=== PATIENT | male | born 1945 | race Caucasian/White ===

== ENCOUNTER 2016-12-29 12:22 | Inpatient (IN) | payer BC ==
--- NOTE | ~2016-12-29 | OP ---
Record Of Operation [facility] [address] [place]. [address] NAME: CAR PEÑALOZA : 45 STATUS : ADM Ziggy PAT#: [id number] AGE: 71 ADM/REG DATE : 12/29/16 MR#: [id number] REPORT SERV DATE: 12/30/16 DICTATED BY: Yovany MARTINEZ DATE: 12/30/16 REPORT STATUS : Draft TRANSCRIBED BY: MODL DATE: 12/30/16 DATE OF PROCEDURE: 12/29/2016 PREOPERATIVE DIAGNOSIS: Left distal ureteral stone with probable urinary tract infection. POSTOPERATIVE DIAGNOSES: 1. Panurethral stricture disease. 2. Left pyelonephrosis with distal ureteral stone. PROCEDURE: Cystoscopy, urethral dilation, left retrograde pyelography, stone manipulation, double-J stent placement, and difficult Amador catheter placement. Examination under anesthesia. ANESTHESIA: General with LMA. DRAINS: 1. 7-Taiwanese x 24 cm Contour double-J stent. 2. 22-Taiwanese coude Amador catheter. BRIEF HISTORY: Mr. Peñaloza is a 71-year-old white male with a known left renal stone and a history of urethral stricture who presented to the ER with evidence of infection and left flank pain. He was found to have a 4 mm distal stone and was admitted with plans for urgent stent placement. The risks and benefits of bleeding, infection, anesthesia, stent misery, need for delayed stone therapy, etc., were all discussed. There were no unanswered questions. DESCRIPTION OF PROCEDURE: Under excellent general anesthesia, the patient was prepped and draped in a standard lithotomy position. Digital exam revealed 2+ symmetric smooth prostate. He had a normal penis that was uncircumcised. Cystoscopy was performed with a 30-degree lens, that revealed narrowing in the mid urethral area that could not accommodate the scope. I dilated his urethra progressively with the Neva sounds from 14-Taiwanese to 24-Taiwanese, which was quite tight especially proximally, and there were ultimately multiple areas of stenosis. I then advanced the scope, and in addition to his stricture disease, noticed an elevated median bar causing some additional bladder outlet obstruction. Inspection of the bladder revealed normal orifices without tumors, stones, or foreign body. An 8-Taiwanese cone-tipped catheter was used to perform a left retrograde pyelogram. It showed a filling defect in the left distal ureter consistent with stone with proximal obstruction. I advanced an angled glidewire through a 5-Taiwanese open-ended catheter up to the level of the renal pelvis and then advanced the open-ended catheter. I drained purulent appearing fluid and sent it for Gram stain and culture. I then deliberately opacified the collecting system and over the wire, placed a 7-Taiwanese x 24 cm Contour double-J stent, which coiled nicely in the renal pelvis and bladder. Additional purulent appearing fluid drained well through and around the stent. I then took a 22-Taiwanese coude and with considerable manipulation, I was able to get it into the bladder. I wanted this large catheter to hopefully keep this stricture open, he otherwise tolerated the procedure well. There was good drainage from his bladder. He was taken to the recovery in stable condition where he will be watched at least Record Of Operation [address] [place]. [address] NAME: CAR PEÑALOZA : 45 STATUS : ADM Ziggy PAT#: [id number] AGE: 71 ADM/REG DATE : 12/29/16 MR#: [id number] REPORT SERV DATE: 12/30/16 DICTATED BY: Yovany MARTINEZ DATE: 12/30/16 REPORT STATUS : Draft TRANSCRIBED BY: SMITHA DATE: 12/30/16 overnight and probably longer with delayed stone therapy. FRANCISCO J/SMITHA Yovany Martinez M.D. / [id number] CC: Lissette Fierro M.D.
--- NOTE | ~2016-12-29 | DS ---
Discharge Summary [place] [address] [place]. [address] NAME: CAR PEÑALOZA : 45 STATUS : DIS Ziggy PAT#: [id number] AGE: 71 ADM/REG DATE : 12/29/16 MR#: [id number] REPORT SERV DATE: 01/01/17 DICTATED BY: Yovany MARTINEZ DATE: 12/31/16 REPORT STATUS : Draft TRANSCRIBED BY: MODL DATE: 12/31/16 ADMISSION DATE: 12/29/2016 DISCHARGE DATE: 12/31/2016 ADMISSION DIAGNOSIS: Obstructing left distal ureteral stone with urinary tract infection. DISCHARGE DIAGNOSES: 1. Obstructing left distal ureteral stone. 2. Pyonephrosis. 3. Protease urinary tract infection. 4. Pain urethral stricture disease. PROCEDURES DURING ADMISSION: 12/29/2016, cystoscopy, urethral dilation, left retrograde pyelography, stone manipulation, double-J stent placement, examination under anesthesia. BRIEF HISTORY: Mr. Peñaloza is a 71-year-old white male with a history of stricture disease and known left renal stone who presented with evidence of infection and obstructing stone. He went to the OR where urethral dilation was necessary to enter his bladder. He had a stent placed. Was found to have maira pus at the time of surgery. He was admitted postoperatively for continued parental antibiotics. HOSPITAL COURSE TREATMENT: Patient was admitted. He had a fever of over 103 in the first night and had some bladder spasms. It was decided to watch him another night. His urine culture on 12/31/2016 was growing Proteus although sensitivities were still pending. His creatinine had come down to 0.96, and his white count was normal. He was afebrile. It was decided to discharge him home with the following instructions. DISCHARGE INSTRUCTIONS: 1. Home today with his Amador catheter. I would like it to be another four to five days. He is comfortable with removing it himself, as he has done this before. 2. Percocet 5/325 one to two p.o. q.4 hours p.r.n. pain, #20. 3. Pyridium 200 mg one p.o. t.i.d. p.r.n. bladder pain, #15 with three refills. 4. Cefuroxime 250 mg p.o. b.i.d. x7 days to begin 01/01/2017. He is going to be discharged today after his 11 a.m. dose of ceftriaxone. We will ultimately call him next week to schedule his delayed ureteroscopy with stone extraction. FRANCISCO J/SMITHA Yovany Martinez M.D. / [id number] CC: Discharge Summary [address] [address] NAME: CAR PEÑALOZA : 45 STATUS : DIS Ziggy PAT#: [id number] AGE: 71 ADM/REG DATE : 12/29/16 MR#: [id number] REPORT SERV DATE: 01/01/17 DICTATED BY: Yovany MARTINEZ DATE: 12/31/16 REPORT STATUS : Draft TRANSCRIBED BY: SMITHA DATE: 12/31/16 Steffen Domingo M.D.
--- NOTE | ~2016-12-29 | HP ---
History And Physical [address] [place]. [address] NAME: CAR PEÑALOZA : 45 STATUS : ADM Ziggy PAT#: [id number] AGE: 71 ADM/REG DATE : 12/29/16 MR#: [id number] REPORT SERV DATE: 12/30/16 DICTATED BY: Yovany MARTINEZ DATE: 12/30/16 REPORT STATUS : Draft TRANSCRIBED BY: MODL DATE: 12/30/16 DATE OF ADMISSION: 12/29/2016 CHIEF COMPLAINT: Left distal ureteral stone with probable UTI. HISTORY OF PRESENT ILLNESS: Mr. Peñaloza is a 71-year-old white male, who presented with several days of left flank pain and a left distal stone. He did not have documented fever, but had inflammatory urine and a slightly elevated white count. It was decided to admit him for antibiotics and urgent stent placement. He has a history of a known stone, but has not had symptomatic stone disease in the past. PAST MEDICAL HISTORY: 1. Fpy-votewbs-newkymkss diabetes mellitus. 2. Cataracts. 3. Hypertension. 4. Hyperlipidemia. 5. Urolithiasis. 6. Urethral stricture disease. PAST SURGICAL HISTORY: 1. DVIU in 1998. 2. Cholecystectomy. 3. Colon resection. HOME MEDICATIONS: Daily aspirin, clindamycin 150 b.i.d., Glucotrol 5 mg daily, metformin 500 twice a day, Benicar 40/25, Zocor 40 mg h.s., Januvia 100 mg h.s., PreserVision. ALLERGIES: SULFADIAZINE CAUSES A RASH. TETANUS TOXOID CAUSES A RASH. REVIEW OF SYSTEMS: A full 12-point review of systems is negative, except as noted above. FAMILY HISTORY: Negative for documented urologic disease. SOCIAL HISTORY: The patient uses alcohol on occasion. Denies tobacco use. PHYSICAL EXAMINATION: GENERAL: Mildly uncomfortable-appearing 71-year-old white male. VITAL SIGNS: Afebrile with normal vital signs. CHEST: Clear. HEART: Regular rate and rhythm. ABDOMEN: Nontender and nondistended. No CVA tenderness. : Normal-appearing external genitalia. Uncircumcised penis. EXTREMITIES: No peripheral clubbing, cyanosis, or edema. PERTINENT LABORATORY: Creatinine 1.7. White count 12,900. Urinalysis positive for red History And Physical [place] [address] [place]. [address] NAME: CAR PEÑALOZA : 45 STATUS : ADM Ziggy PAT#: [id number] AGE: 71 ADM/REG DATE : 12/29/16 MR#: [id number] REPORT SERV DATE: 12/30/16 DICTATED BY: Yovany MARTINEZ DATE: 12/30/16 REPORT STATUS : Draft TRANSCRIBED BY: MODL DATE: 12/30/16 cells, white cells, leukocyte esterase large. CT of the abdomen and pelvis shows a 4 mm left distal ureteral stone about 3 cm above the UVJ with hydronephrosis. IMPRESSION: 1. Obstructing left distal ureteral stone. 2. Probable urinary tract infection. 3. Acute kidney injury. PLAN: 1. We will admit for at least overnight observation, probably longer. 2. N.P.O. for now. 3. Plan urgent stent placement sometime later today. It is noted he has previous urethral stricture, so something may need to be done there as well. Ultimately, we will plan delayed ureteroscopic stone extraction. FRANCISCO J/SMITHA Yovany Martinez M.D. / [id number] CC: Lissette Fierro M.D.
[2016-12-29 10:54] LABS: BASOPHILS 0.1 %; BASOPHILS ABSOLUTE 0.01 10/3/uL (0.0-0.16); EOSINOPHILS 0 %; HEMATOCRIT 37.8 % (40.0-51.0); HEMOGLOBIN 13.4 g/dL (13.6-17.8); IMMATURE GRANULOCYTES 0.5 %; IMMATURE GRANULOCYTES ABSOLUTE 0.06 10/3/uL (0.0-0.11); LYMPHOCYTES 2.2 %; LYMPHOCYTES ABSOLUTE 0.29 10/3/uL (0.67-4.30); MEAN CORPUS HGB CONC 35.4 g/dL (32.0-36.0); MEAN CORPUSCULAR HEMOGLOB 33.2 pg (26.0-34.0); MEAN CORPUSCULAR VOLUME 93.6 fL (80-100); MEAN PLATELET VOLUME 11.1 fL (9.2-13.0); MONOCYTES 5.9 %; MONOCYTES ABSOLUTE 0.76 10/3/uL (0.21-1.20); NEUTROPHILS 91.3 %; NEUTROPHILS ABSOLUTE 11.77 10/3/uL (2.02-8.40); PLATELET COUNT 96 10/3/uL (150-400); RBC DISTRIBUTION WIDTH 13.2 % (12.0-16.0); RED CELL COUNT 4.04 10/6/uL (4.7-6.1); WHITE BLOOD CELLS 12.9 10/3/uL (4.5-10.5)
[2016-12-29 10:55] LABS: MANUAL DIFF NO %
[2016-12-29 11:10] LABS: A/G RATIO 1.2 (0.7-1.9); ALBUMIN 3.6 G/DL (3.5-5.0); ALKALINE PHOSPHATASE 97 U/L (45-117); BUN (BLOOD UREA NITROGEN) 29 MG/DL (6-23); CALCIUM, SERUM 8.5 MG/DL (8.5-10.4); CHLORIDE, SERUM 108 MMOL/L (96-112); CO2 (CARBON DIOXIDE) 23 MMOL/L (24-34); GFR AFRICAN AMERICAN 46 ML/MIN (>=60); GFR NON AFRICAN AMERICAN 40 ML/MIN (>=60); GLOBULIN 2.9 G/DL (2.5-4.1); GLUCOSE, SERUM 193 MG/DL (60-99); POTASSIUM, SERUM 3.9 MMOL/L (3.5-5.3); SGPT(ALT) 34 U/L (5-65); SODIUM, SERUM 141 MMOL/L (135-148); TOTAL BILIRUBIN 1.4 MG/DL (0-1.2); TOTAL PROTEIN 6.5 G/DL (6.0-8.5)
[2016-12-29 11:11] LABS: SGOT(AST) 32 U/L (5-40)
[2016-12-29 11:29] LABS: ASCORBIC ACID (UR NOT ORDER) 40 (NEG); BILIRUBIN, URINE NEGATIVE (NEG); ER URINALYSIS TAT 0 Hrs 13 Mins; KETONE, URINE 20 MG/DL (NEG); LEUKOCYTE ESTERASE(NOT OR LARGE (NEG); NITRITE (URINE) NEG (NEG); WBC (NOT ORDERED) (RFLEX) 141 (0-5)
[~2016-12-29 12:22] MED LIST: ASAB PO; BENICAR40 PO; DIABETA5 PO; GLUCPH PO; JANUVIA100 MG PO; MYRAC100 MG PO; PRESERVISION A1 EAC1 PO; ZOCOR40 PO
[2016-12-29] MEDS ORDERED: JANUVIA100 MG PO (13:07)
[2016-12-29] MEDS ORDERED: GLUCPH PO (13:07)
[2016-12-29] MEDS ORDERED: BENICAR HCT1 TA2 PO (13:07)
[2016-12-29] MEDS ORDERED: PRESERVISION A1 EAC1 PO (13:07)
[2016-12-29] MEDS ORDERED: ZOCOR40 PO (13:07)
[2016-12-29] MEDS ORDERED: HALF81 PO (13:08)
[2016-12-29] MEDS ORDERED: CLINDA150 PO (13:08)
[2016-12-29] MEDS ORDERED: GLUCOTROL5 PO (13:09)
[2016-12-30 06:26] LABS: HEMATOCRIT 35.3 % (40.0-51.0); HEMOGLOBIN 12.2 g/dL (13.6-17.8); MEAN CORPUS HGB CONC 34.6 g/dL (32.0-36.0); MEAN CORPUSCULAR HEMOGLOB 33.1 pg (26.0-34.0); MEAN CORPUSCULAR VOLUME 95.7 fL (80-100); MEAN PLATELET VOLUME 11.2 fL (9.2-13.0); PLATELET COUNT 88 10/3/uL (150-400); RBC DISTRIBUTION WIDTH 13.3 % (12.0-16.0); RED CELL COUNT 3.69 10/6/uL (4.7-6.1); WHITE BLOOD CELLS 8.5 10/3/uL (4.5-10.5)
[2016-12-30 06:36] LABS: BUN (BLOOD UREA NITROGEN) 31 MG/DL (6-23); CALCIUM, SERUM 8.2 MG/DL (8.5-10.4); CHLORIDE, SERUM 108 MMOL/L (96-112); CO2 (CARBON DIOXIDE) 27 MMOL/L (24-34); CREATININE 1.47 MG/DL (0.70-1.30); GFR AFRICAN AMERICAN 55 ML/MIN (>=60); GFR NON AFRICAN AMERICAN 47 ML/MIN (>=60); GLUCOSE, SERUM 192 MG/DL (60-99); POTASSIUM, SERUM 3.7 MMOL/L (3.5-5.3); SODIUM, SERUM 143 MMOL/L (135-148)
[2016-12-31 06:10] LABS: BASOPHILS 0.1 %; BASOPHILS ABSOLUTE 0.01 10/3/uL (0.0-0.16); EOSINOPHILS 1.1 %; EOSINOPHILS ABSOLUTE 0.09 10/3/uL (0.0-0.53); HEMATOCRIT 34.7 % (40.0-51.0); IMMATURE GRANULOCYTES 0.4 %; IMMATURE GRANULOCYTES ABSOLUTE 0.03 10/3/uL (0.0-0.11); LYMPHOCYTES 8.3 %; LYMPHOCYTES ABSOLUTE 0.67 10/3/uL (0.67-4.30); MEAN CORPUS HGB CONC 34.6 g/dL (32.0-36.0); MEAN CORPUSCULAR HEMOGLOB 32.7 pg (26.0-34.0); MEAN CORPUSCULAR VOLUME 94.6 fL (80-100); MEAN PLATELET VOLUME 10.4 fL (9.2-13.0); MONOCYTES 9.5 %; MONOCYTES ABSOLUTE 0.77 10/3/uL (0.21-1.20); NEUTROPHILS 80.6 %; NEUTROPHILS ABSOLUTE 6.52 10/3/uL (2.02-8.40); PLATELET COUNT 99 10/3/uL (150-400); RBC DISTRIBUTION WIDTH 13.4 % (12.0-16.0); RED CELL COUNT 3.67 10/6/uL (4.7-6.1); WHITE BLOOD CELLS 8.1 10/3/uL (4.5-10.5)
[2016-12-31 06:12] LABS: MANUAL DIFF NO %
[2016-12-31 06:22] LABS: BUN (BLOOD UREA NITROGEN) 20 MG/DL (6-23); CALCIUM, SERUM 8.6 MG/DL (8.5-10.4); CHLORIDE, SERUM 108 MMOL/L (96-112); CO2 (CARBON DIOXIDE) 27 MMOL/L (24-34); CREATININE 0.96 MG/DL (0.70-1.30); GFR AFRICAN AMERICAN 92 ML/MIN (>=60); GFR NON AFRICAN AMERICAN 79 ML/MIN (>=60); GLUCOSE, SERUM 146 MG/DL (60-99); POTASSIUM, SERUM 3.8 MMOL/L (3.5-5.3); SODIUM, SERUM 144 MMOL/L (135-148)
[2016-12-31] MEDS ORDERED: PCET PO (09:23)
[2016-12-31] MEDS ORDERED: PYR200 PO (09:24)
[2016-12-31] MEDS ORDERED: CEFT2 PO (09:24)
[2017-01-02] MEDS ORDERED: ACET500CAP PO (12:44)
[2017-01-02] MEDS ORDERED: ASAB PO (12:45)
== END 2016-12-31 13:26 | disposition home or self-care (01) | DRG 669 ==
LOC: ER 12:22 → SDC/OF 14:41 → CDU1 14:54 → CDU2 15:14 → SDC/OF 16:16 → PACU 17:27 → 5SO 19:29
PROVIDERS: Emergency Medicine
PROC: 0T7D8ZZ Dilation of Urethra, Via Natural or Artificial Opening Endoscopic (ICD-10-PCS; 2016-12-29)
PROC: BT1FZZZ Fluoroscopy of Left Kidney, Ureter and Bladder (ICD-10-PCS; 2016-12-29)
PROC: 0T778DZ Dilation of Left Ureter with Intraluminal Device, Via Natural or Artificial Opening Endoscopic (ICD-10-PCS; 2016-12-29)
PROC: 0TC78ZZ Extirpation of Matter from Left Ureter, Via Natural or Artificial Opening Endoscopic (ICD-10-PCS; principal; 2016-12-29 16:15)
DX: N20.1 Calculus of ureter (principal); N13.6 Pyonephrosis; E11.9 Type 2 diabetes mellitus without complications; N39.0 Urinary tract infection, site not specified; B96.4 Proteus (mirabilis) (morganii) as the cause of diseases classified elsewhere; I10 Essential (primary) hypertension; E78.5 Hyperlipidemia, unspecified; N35.9 Urethral stricture, unspecified; Z79.82 Long term (current) use of aspirin; Z87.442 Personal history of urinary calculi; Z79.84 Long term (current) use of oral hypoglycemic drugs; Z79.899 Other long term (current) drug therapy
CPT/HCPCS: 74176; 74420; 80048; 80053; 81001; 82962; 83690; 85025; 85027; 87077; 87086; 87186; 93005; 96374; 96376; 99285; A9270-GY; C1758; C1769; C1874; G0378; J2370; J2405; J3010; Q9967

== ENCOUNTER 2017-01-06 11:54 | Day surgery (SDC) | payer BC ==
--- NOTE | ~2017-01-06 | OP ---
Record Of Operation [facility] [address] [place]. [address] NAME: CAR PEÑALOZA : 45 STATUS : REG [facility] PAT#: [id number] AGE: 71 ADM/REG DATE : 01/06/17 MR#: [id number] REPORT SERV DATE: 01/06/17 DICTATED BY: Yovany MARTINEZ DATE: 01/06/17 REPORT STATUS : Draft TRANSCRIBED BY: MODL DATE: 01/06/17 DATE OF PROCEDURE: 01/06/2017 PREOPERATIVE DIAGNOSIS: Left ureteral stone. POSTOPERATIVE DIAGNOSIS: Left ureteral stone. PROCEDURE: Cystoscopy, removal of left double-J stent, left retrograde pyelography, ureteroscopy, laser lithotripsy, basket stone extraction, double-J stent replacement. SURGEON: Yovany Martinez M.D. ANESTHESIA: General. COMPLICATIONS: None. DRAINS: 7-Yakut x 24 cm Contour double-J stent (on a string). BRIEF HISTORY: Mr. Peñaloza is a 71-year-old white male, well known to me with a history of stone disease who presented on 12/29/2016, with an obstructing distal stone and evidence of urinary tract infection. He also has a history of stricture and he was taken to the OR for stent placement but needed urethral dilation due to inability to pass the scope. At any rate, a stent was placed successfully. He was ultimately discharged on sensitivity-directed antibiotics, which he continues. In addition to that, he wore a catheter until earlier this week which he removed and is voiding somewhat better. He is here for definitive stone therapy and stent exchange. Risks and benefits were as discussed previously. DESCRIPTION OF PROCEDURE: Under excellent general anesthesia, the patient was prepped and draped in a standard lithotomy position. Cystoscopy was performed with the 30-degree lens, revealed a stent emanating from the left orifice, it already had early encrustation. I was able to pass the scope through the urethra but there were some areas that remained tight. I inserted an angled glidewire through a 5-Yakut open-ended catheter and then a short rigid ureteroscope was inserted along side the wire. The stone was seen in the mid ureteral area and engaged in the basket although I could not remove it through the distal ureter. I therefore disengaged the stone and I inserted a 200 micron holmium YAG laser fiber and fragmented the stone into small pieces. I then retrieved some of them for analysis. I dilutely opacified the collecting system, retrofitted the wire in the cystoscope, and placed a 7-Yakut x 24 cm Contour double-J stent which coiled nicely in the renal pelvis and bladder. I left the string affixed and plan to discharge Mr. Peñaloza as an outpatient with the following instructions: DISCHARGE INSTRUCTIONS: 1. Home today. 2. Continue medicines as previously prescribed. 3. He can remove his stent morning which is in 48 hours and call for any problems, otherwise keep his annual followup in March for PSA monitoring at which Record Of Operation [address] [address] NAME: CAR PEÑALOZA : 45 STATUS : REG [facility]#: [id number] AGE: 71 ADM/REG DATE : 01/06/17 MR#: [id number] REPORT SERV DATE: 01/06/17 DICTATED BY: Yovany MARTINEZ DATE: 01/06/17 REPORT STATUS : Draft TRANSCRIBED BY: SMITHA DATE: 01/06/17 time, we will review his stone as well. FRANCISCO J/SMITHA Yovany Martinez M.D. / [id number] CC: Lissette Fierro M.D.
[~2017-01-06 11:54] MED LIST changes: +ACET500CAP PO; +BENICAR HCT1 TA2 PO; +CEFT2 PO; +CLINDA150 PO; +GLUCOTROL5 PO; +HALF81 PO; +PCET PO; +PYR200 PO
[2017-01-14 01:41] LABS: STONE COMPOSITION TWO DNR (())
== END 2017-01-06 17:53 | disposition home or self-care (01) ==
LOC: SDC 11:54
PROC: 0T778DZ Dilation of Left Ureter with Intraluminal Device, Via Natural or Artificial Opening Endoscopic (ICD-10-PCS; 2017-01-06)
PROC: BT1FZZZ Fluoroscopy of Left Kidney, Ureter and Bladder (ICD-10-PCS; 2017-01-06)
PROC: 0TF78ZZ Fragmentation in Left Ureter, Via Natural or Artificial Opening Endoscopic (ICD-10-PCS; principal; 2017-01-06 14:00)
DX: N20.1 Calculus of ureter (principal); I10 Essential (primary) hypertension; E78.00 Pure hypercholesterolemia, unspecified; E11.9 Type 2 diabetes mellitus without complications; Z88.2 Allergy status to sulfonamides; Z88.7 Allergy status to serum and vaccine; Z87.442 Personal history of urinary calculi
CPT/HCPCS: 74420; 82365; 82962; C1758; C1769; C1874; J0690; J2250; J2405; J2710; J3010; Q9967